=== PATIENT | male | born 1960 | race Caucasian/White ===

== ENCOUNTER 2024-01-31 09:53 | Day surgery (SDC) | payer BC, SELFPAY ==
[2024-01-18 12:08] VITALS: BMI 38.9
[2024-01-18 12:32] LABS: % Basophils 0.5 % (0-2); % Immature Granulocytes 1.2 % (0-0.5); % Lymphocytes 19.5 % (20.5-51.1); % Monocytes 11.6 % (1.7-9.3); % Neutrophils 64.2 % (42.2-75.2); Absolute Eosinophils 0.2 10^3/uL (0-0.7); Absolute Immature Granulocytes 0.1 10^3/uL (0-0.05); Absolute Lymphocytes 1.3 10^3/uL (1.2-3.4); Absolute Monocytes 0.8 10^3/uL (0.1-0.6); Absolute Neutrophils 4.3 10^3/uL (1.4-6.5); Hematocrit 43.5 % (39.0-52.0); Hemoglobin 14.5 g/dL (13.0-18.0); Mean Corp Hgb Conc. 33.3 g/dL (33.0-37.0); Mean Corpuscular Hgb 27.4 pg (27.0-31.0); Mean Corpuscular Volume 82.2 fL (80.0-94.0); Nucleated Red Blood Cells % 0 % (-); Platelet Count 212 10^3/uL (130-400); Red Blood Cell Count 5.29 10^6/uL (4.70-6.10); Red Cell Dist. Width 18.2 % (11.5-14.5); White Blood Cell Count 6.7 10^3/uL (4.8-10.8)
[2024-01-18 12:59] LABS: INR 1.34; PT 16.4 Sec (11.4-14.6)
[2024-01-18 13:06] LABS: ALT (SGPT) 45 U/L (0-50); AST (SGOT) 36 U/L (17-59); Albumin 4.3 g/dl (3.5-5.0); Alkaline Phosphatase 61 U/L (38-126); Blood Urea Nitrogen 17 mg/dl (9-20); Calcium 9.5 mg/dl (8.4-10.2); Carbon Dioxide 25 mmol/L (22-30); Chloride 105 mmol/L (98-107); Estimated Creatinine Clearance 101 ml/min; Glucose 90 mg/dl (70-99); Magnesium 2.4 mg/dl (1.6-2.3); Potassium 4.8 mmol/L (3.5-5.1); Sodium 140 mmol/L (135-145); Total Bilirubin 0.4 mg/dl (0.2-1.3); Total Protein 6.9 g/dl (6.3-8.2); eGFR > 60.00
[2024-01-31] VITALS (18 sets, daily range): BP systolic 105–141; BP diastolic 57–105; BMI 37.1
[2024-01-31 10:35] LABS: Glucose - Point of Care 103 mg/dl (70-99)
[2024-01-31 13:05] LABS: ACT-LR - POC 385 Seconds (116-155)
[2024-01-31 13:36] LABS: ACT-LR - POC 306 Seconds (116-155)
[2024-01-31 13:56] LABS: ACT-LR - POC 337 Seconds (116-155)
--- NOTE | 2024-01-31 15:02 | ITS.CL.ABL ---
Gate Agent - Ablation
Ablation
Procedure Report:
ELECTROPHYSIOLOGIC STUDY AND POSSIBLE ABLATION
DATE: January 31, 2024
Primary Care Provider: Dr Jerry Oates
Primary Supply Specialist: Dr Erick Arias
INDICATION:
Symptomatic Atrial Fibrillation.
Persistent
HISTORY: See H and P.
Symptomatic AF, poorly controlled with attempted medical therapy
HAS-BLED:0
CHADSVASc:
HFrEF, LVEF 20% 2
DM
PRESENTING RHYTHM: SR
HISTORY: See H and P.
Symptomatic AF, poorly controlled with attempted medical therapy.
ANTIARRHYTHMIC DRUG: amiodarone
ANTICOAGULATION: apixaban
'TIME-OUT': called and confirmed.
SEDATION/ANESTHESIA: provided via the anesthesia department using general anesthesia.
PROCEDURE:
Ultrasound Guidance performed by ri was utilized for femoral venous Vascular Access b/l.
A decapolar CS catheter was placed within the CS for mapping and pacing.
The intracardiac ultrasound catheter was positioned in the RA for continuous intracardiac ultrasound imaging.
Heparin bolus and infusion to target ACT at 300 -350 seconds was administered. Transseptal puncture was performed. This entailed advancing a sheath with dilator into the superior vena cava and withdrawing both (monitoring intracardiac ultrasound,
fluoroscopy and tip pressure) with the tip oriented toward the atrial septum. The fossa ovalis was engaged (indicated by sudden displacement of the sheath tip as well as tenting of the fossa seen on intracardiac ultrasound).
AcQCross transseptal system was used. Left atrial catheter position was confirmed by echocardiographic imaging, pressure monitoring (LA mean pressure [ ] mm Hg) and fluoroscopy. The sheath was advanced over the dilator and positioned in the left
atrium.
The multipolar mapping catheter was initially positioned through the transseptal sheath for high density mapping.
Geometry and voltage mapping was performed using the YAZUO multipolar grid catheter. Navex was utilized for three-dimensional electroanatomical mapping.
A 3-D map was created using Navex . A 3-D reconstructed CT image was compared to the 3-D Navex map to assist in anatomic evaluation, mapping and ablation.
The Entrisphere Pulse Select PFA catheter and system was used for cardiac ablation. Catheter positioning was guided and confirmed using both I.C.E. and fluoroscopy.
PV isolation approach was used to electrically isolate each PV ostia.
Remapping with the YAZUO multipolar grid catheter found that all PVPs were eliminated at each vein demonstrating entrance block. Also pacing from the multipolar mapping catheter around the the circumference of the ostia was performed at 10 ma and
2.0 msec output to assess for exit block. This demonstrated electrical isolation at each of the pulmonary vein ostia, LSPV, LIPV, RSPV, RIPV.
Additional energy applications/additional ablation set was required to accomplish wide area circumferential ablation around each of the pulmonary vein sets.
High-definition mapping of the posterior wall the left atrium finds no significant abnormal fractionation/voltages in the posterior wall the left atrium. Left atrial posterior wall ablation was not performed.
Programmed electrical stimulation is able to induce an atrial tachyarrhythmia at cycle length 330 ms with activation sequence proximal to distal on the coronary sinus decapolar catheter. Entrainment from the distal coronary sinus is outside the
tachycardia circuit. Entrainment from the proximal coronary sinus poles is within the tachycardia circuit. Activation mapping in the left atrium finds collision of activation at the posterior wall of the left atrium and collision of activation at
the mitral annulus. These findings along with electrocardiographic appearance suggest typical cavotricuspid counterclockwise atrial flutter. Catheters were then withdrawn from the left atrium. The grid multipolar catheter was used to create an
activation map of the right atrium and this along with entrainment from the cavotricuspid isthmus demonstrates counterclockwise right atrial isthmus dependent flutter.
A 4 mm tip irrigated contact sensing catheter was then substituted for the mapping catheter and a series of discrete RF applications at approximately 6:00 in the WILI 30 degree projection resulted in bidirectional block across the cavotricuspid
isthmus and further attempts at induction could not induce atrial flutter.
I.C.E. :
Pre-Ablation Post-Ablation
LVEF: 20 % 20 %
WMA: none none
Pericardial effusion: none none
COMPLICATIONS:
None
SUMMARY:
- Mapping and ablation to isolate the PVs at an ostial level.
- Additional AF ablation set after PVI (wide area circumferential ablation after ostial isolation).
- Mapping and ablation of second tachycardia (SVT: typical counterclockwise right atrial isthmus dependent flutter)
- 3-D Electroanatomical Mapping
- Intracardiac Ultrasound
Post ablation, I discussed today's findings and results with the patient's .
RECOMMENDATIONS:
- Observe in monitored bed.
- Maintain oral anticoagulation.
- Reduce amiodarone to 200 mg daily and plan to maintain for up to 6 months before considering a dose reduction.
- Sotp digoxin
- Office visit with me in 3 months.
Copy to:
Dr Jerry Oates
Dr Erick Arias
[2024-01-31 16:13] LABS: Glucose - Point of Care 102 mg/dl (70-99)
--- NOTE | 2024-01-31 17:04 | W.PN.UPDATE ---
Update Note
Progress Note Update
63 yo WM s/p PVI (same day) He has some mild chest heaviness, no sob, cindi clears, b/l groins FO8 in place, c/d/i no HT, soft. He will continue OAC Eliquis tonight at 8pm. He will decrease Amiodarone to daily an stop Digoxin. He will f/u Dr. Juarez in 3
mo. He is for d/c home after 7pm if groins stable and able to void.
SUMMARY:
- Mapping and ablation to isolate the PVs at an ostial level.
- Additional AF ablation set after PVI (wide area circumferential ablation after ostial isolation).
- Mapping and ablation of second tachycardia (SVT: typical counterclockwise right atrial isthmus dependent flutter)
- 3-D Electroanatomical Mapping
- Intracardiac Ultrasound
Post ablation, I discussed today's findings and results with the patient's .
RECOMMENDATIONS:
- Observe in monitored bed.
- Maintain oral anticoagulation.
- Reduce amiodarone to 200 mg daily and plan to maintain for up to 6 months before considering a dose reduction.
- Sotp digoxin
- Office visit with me in 3 months.
Copy to:
Dr Jerry Oates
Dr Erick Arias
== END 2024-01-31 19:12 | disposition home or self-care (01) ==
LOC: CATH 09:53
PROVIDERS: ATTENDING PHYSICIAN Internal Medicine Cardiovascular Disease; FAMILY PHYSICIAN Family Medicine
DX: R60.0 Localized edema (principal); R05.9 Cough, unspecified; R06.02 Shortness of breath; I11.0 Hypertensive heart disease with heart failure; I48.19 Other persistent atrial fibrillation; E11.9 Type 2 diabetes mellitus without complications; M19.90 Unspecified osteoarthritis, unspecified site; G47.33 Obstructive sleep apnea (adult) (pediatric); Z98.84 Bariatric surgery status; E78.5 Hyperlipidemia, unspecified; Z79.84 Long term (current) use of oral hypoglycemic drugs; I25.10 Atherosclerotic heart disease of native coronary artery without angina pectoris; I42.0 Dilated cardiomyopathy; K21.9 Gastro-esophageal reflux disease without esophagitis; Z87.19 Personal history of other diseases of the digestive system; Z79.899 Other long term (current) drug therapy; I44.4 Left anterior fascicular block; I44.7 Left bundle-branch block, unspecified; I50.20 Unspecified systolic (congestive) heart failure; I71.21 Aneurysm of the ascending aorta, without rupture; Z79.01 Long term (current) use of anticoagulants; I47.19 Other supraventricular tachycardia
CPT/HCPCS: C1732; C1733; C1894; C1769; C1730; C2630; C1892; C1759; 36415; 75572; 80053; 82962; 83735; 85025; 85347; 85610; 86850; 86900; 86901; 93005; 93655; 93656; 93657; Q9967

== ENCOUNTER → 2024-05-08 13:30 | Outpatient (REF) | payer BC, SELFPAY | LOC: RCS 13:30 | PROVIDERS: ATTENDING PHYSICIAN Internal Medicine Cardiovascular Disease; FAMILY PHYSICIAN Family Medicine | DX: I48.19 Other persistent atrial fibrillation (principal) | CPT/HCPCS: 93306 ==